=== PATIENT | male | born 1935 | race Two or more races ===

== ENCOUNTER 2021-01-08 01:31 | Inpatient (IN) | payer OTHER ==
[~2021-01-08] VITALS: Ht 167.6 cm; Wt 50.0 kg
[2021-01-08 01:43] LABS: ABG A-A DIFF O2 435.6 mmHg (10-20.0); ABG BASE EXCESS 19.9 mmol/L (-2.0-3.0); ABG CARBOXYHEMOGLOBIN 0.4 % (0.0-1.5); ABG METHEMOGLOBIN 0.4 % (0.0-1.5); ABG OXYGEN CONTENT 14.5 mL/dL (15.0-23.0); ABG OXYHEMOGLOBIN 98.2 % (94.0-100.0); ABG PH 7.392 (7.35-7.450); ABG TOTAL HEMOGLOBIN 10.2 G/dL (12.0-18.0); PO2, ARTERIAL BG 199.7 mmHg (71.0-79.0); SOURCE, BLOOD GAS ARTERIAL
[2021-01-08 01:44] LABS: ABG PCO2 76 mmHg (35-45); O2 DEVICE,BLOOD GAS BIPAP (ROOM AIR); SITE, BLOOD GAS RT RADIAL
[2021-01-08] MEDS ORDERED: IPRATROPIUM BROMIDE 0.5 MG/2.5 ML NEB SOLUTION NEB ONE (01:45)
[2021-01-08] MEDS ORDERED: 0.9% SODIUM CHLORIDE 10 ML SYRINGE IVP PRN ×2 (01:45→06:45)
[2021-01-08] MEDS ORDERED: ALBUTEROL SULFATE 5 MG/ML 20 ML NEB SOLN [BULK] NEB ONE (01:45)
[2021-01-08] MEDS ORDERED: ACETAMINOPHEN 1000 MG/ISO-OSM 100 ML IV ONE (01:45)
[2021-01-08 01:47] LABS: EOSINOPHILS % (AUTO) 13.8 % (1.0-6.0); HEMATOCRIT 28.3 % (41-53); HEMOGLOBIN 8.9 g/dL (13.5-17.5); LYMPHOCYTES # (AUTO) 0.8 K/uL (1.0-4.8); LYMPHOCYTES % (AUTO) 9.4 % (22.0-44.0); MEAN CORPUSCULAR HEMOGLOBIN 33.4 pg (26.0-34.0); MEAN CORPUSCULAR HGB CONC 31.6 G/dL (31.0-37.0); MEAN CORPUSCULAR VOLUME 106 fL (80-100); MONOCYTES # (AUTO) 0.9 K/uL (0.1-1.0); MONOCYTES % (AUTO) 10.2 % (2.0-9.0); NEUTROPHILS # (AUTO) 5.5 K/uL (1.8-7.7); NEUTROPHILS % (AUTO) 65.6 % (40.0-70.0); PLATELET COUNT (AUTO) 183 K/uL (150-450); RED BLOOD CELL COUNT(AUTO) 2.67 MIL/uL (4.50-5.90); RED CELL DISTRIBUTION WIDTH 16.1 % (11.5-14.5)
[2021-01-08] MEDS ORDERED: NIFE30TA98 PO (01:47)
[2021-01-08] MEDS ORDERED: TERA2CAP10 PO (01:47)
[2021-01-08] MEDS ORDERED: FINA-27 PO (01:47)
[2021-01-08] MEDS ORDERED: ATOR40TA28 PO (01:47)
[2021-01-08] MEDS ORDERED: METO50 PO (01:47)
[2021-01-08] MEDS ORDERED: THIA100T80 PO (01:47)
[2021-01-08] MEDS ORDERED: FURO20 PO (01:47)
[2021-01-08 01:51] LABS: CHLORIDE 103 mmol/L (98-107); CREATININE 1.09 mg/dL (0.60-1.30); GLUCOSE,RANDOM 200 mg/dL (70-110); POTASSIUM 4.3 mmol/L (3.5-5.1); SODIUM SERUM 148 mmol/L (136-145); UREA NITROGEN, BLOOD 40 mg/dL (7-18)
[2021-01-08 01:58] LABS: ALANINE AMINOTRANSFERASE 20 U/L (12-78); ALKALINE PHOSPHATASE 71 U/L (46-116); ASPARTATE AMINOTRANSFERASE 16 U/L (15-37); BILIRUBIN,TOTAL 0.7 mg/dL (0.1-1.0); CREATINE KINASE, TOTAL ONLY 19 U/L (39-308); TOTAL PROTEIN, SERUM 6.6 g/dL (6.4-8.2)
[2021-01-08 02:01] LABS: ANION GAP -3 mmol/L (8-16); GLOMERULAR FILTR. RATE CALC > 60 mL/min (>60)
[2021-01-08 02:03] LABS: CARBON DIOXIDE 48 mmol/L (22-29)
[2021-01-08 02:06] LABS: LACTIC ACID 1.2 mmol/L (0.4-2.0)
[2021-01-08 02:08] LABS: B-TYPE NATRIURETIC PEPTIDE 112 pg/mL (0-100)
[2021-01-08 02:09] LABS: D-DIMER 0.64 mg/L FEU (0.00-0.50); INR 1.1 (0.9-1.1); PROTHROMBIN TIME 11.3 SEC (9.4-11.6)
[2021-01-08 02:37] LABS: COVID AG,FIA SOURCE NASOPHARYNGEAL
[2021-01-08] MEDS ORDERED: PRED1 PO (03:20)
[2021-01-08] MEDS ORDERED: AMOX500C2 PO (03:20)
[2021-01-08 03:22] LABS: INFLUENZA TYPE A NEGATIVE FOR TYPE A (NEGATIVE); INFLUENZA TYPE B NEGATIVE FOR TYPE B (NEGATIVE)
[2021-01-08] MEDS ORDERED: AZITHROMYCIN 500 MG/NS 250 ML IV ONE (03:45)
[2021-01-08] MEDS ORDERED: CefTRIAXone 1 GM/DEXTROSE 50 ML IV ONE (03:45)
[2021-01-08 04:28] LABS: ABG A-A DIFF O2 126.2 mmHg (10-20.0); ABG BASE EXCESS 18.7 mmol/L (-2.0-3.0); ABG CARBOXYHEMOGLOBIN 0.5 % (0.0-1.5); ABG METHEMOGLOBIN 0.3 % (0.0-1.5); ABG OXYGEN CONTENT 13.1 mL/dL (15.0-23.0); ABG OXYGEN SATURATION 99.4 % (95.0-98.0); ABG OXYHEMOGLOBIN 98.6 % (94.0-100.0); ABG PCO2 81 mmHg (35-45); ABG PH 7.357 (7.35-7.450); ABG TOTAL HEMOGLOBIN 9.1 G/dL (12.0-18.0); PO2, ARTERIAL BG 212.9 mmHg (71.0-79.0); SITE, BLOOD GAS RT RADIAL; SOURCE, BLOOD GAS ARTERIAL; TEMPERATURE, FAHRENHEIT, BG 98.6 FAHREN (96.0-98.6)
[2021-01-08 04:29] LABS: O2 DEVICE,BLOOD GAS BIPAP (ROOM AIR)
[2021-01-08] MEDS ORDERED: MethylPREDNISolone SOD SUCC 125 MG/2 ML VIAL IVP ONE (05:45)
[2021-01-08] MEDS ORDERED: ACETAMINOPHEN 325 MG TABLET PO PRN (06:45)
[2021-01-08] MEDS ORDERED: ONDANSETRON HCL 4 MG/2 ML VIAL IVP PRN (06:45)
[2021-01-08] MEDS ORDERED: *CLINICAL-CEFTAZIDIME DOSING CLINICAL ONE (07:45)
[2021-01-08] MEDS ORDERED: VANCOMYCIN HCL 1 GM/D5% WATER 200 ML IV ONE (08:00)
[2021-01-08] MEDS: HEPARIN SODIUM,PORCINE 5,000 UNITS/ML VIAL SQ SCH ×3 (08:15→23:49)
[2021-01-08] MEDS: ATORVASTATIN CALCIUM 40 MG TABLET PO SCH (08:41)
[2021-01-08] MEDS: METOPROLOL TARTRATE 50 MG TABLET PO SCH ×2 (08:42→21:00)
[2021-01-08] MEDS: THIAMINE 100 MG TABLET PO SCH (08:42)
[2021-01-08] MEDS ORDERED: FINASTERIDE 5 MG TABLET PO SCH ×2 (09:00→15:30)
[2021-01-08] MEDS ORDERED: FUROSEMIDE 20 MG TABLET PO SCH (09:00)
[2021-01-08] MEDS ORDERED: IPRATROPIUM BROMIDE 0.5 MG/2.5 ML NEB SOLUTION NEB PRN (11:15)
[2021-01-08] MEDS ORDERED: ALBUTEROL SULFATE 2.5 MG/0.5 ML NEB SOLUTION NEB PRN (11:15)
[2021-01-08] MEDS ORDERED: SODIUM CHLORIDE 0.9% 1,000 ML IV ONE (13:30)
[2021-01-08 16:47] VITALS: BP 112/47
[2021-01-08] MEDS: CefTAZidime PENTAHYDRATE 1 GM in DEXTROSE 5%-WATER 50 ML IV SCH (16:48)
[2021-01-08 20:30] VITALS: BP 109/52
[2021-01-08] MEDS ORDERED: TERAZOSIN HCL 2 MG CAPSULE PO SCH ×2 (21:00)
[2021-01-08 23:51] VITALS: BP 112/52
[2021-01-09] MEDS: CefTAZidime PENTAHYDRATE 1 GM in DEXTROSE 5%-WATER 50 ML IV SCH ×2 (04:32→16:19)
[2021-01-09 05:58] VITALS: BP 105/50
[2021-01-09 07:30] VITALS: BP 112/45
[2021-01-09] MEDS: ATORVASTATIN CALCIUM 40 MG TABLET PO SCH (08:00)
[2021-01-09] MEDS: THIAMINE 100 MG TABLET PO SCH (08:00)
[2021-01-09] MEDS: HEPARIN SODIUM,PORCINE 5,000 UNITS/ML VIAL SQ SCH ×2 (08:00→16:20)
[2021-01-09] MEDS: MethylPREDNISolone SOD SUCC 40 MG/ML VIAL IVP SCH ×2 (08:01→16:19)
[2021-01-09] MEDS: METOPROLOL TARTRATE 50 MG TABLET PO SCH (08:04)
[2021-01-09] MEDS ORDERED: MethylPREDNISolone SOD SUCC 40 MG/ML VIAL IVP SCH (09:00)
[2021-01-09 12:00] LABS: CALCIUM, TOTAL 9.8 mg/dL (8.8-10.5); CHLORIDE 109 mmol/L (98-107); CREATININE 0.71 mg/dL (0.60-1.30); GLUCOSE,RANDOM 129 mg/dL (70-110); POTASSIUM 3.9 mmol/L (3.5-5.1); SODIUM SERUM 152 mmol/L (136-145); UREA NITROGEN, BLOOD 38 mg/dL (7-18)
[2021-01-09] MEDS ORDERED: SODIUM CHLORIDE 0.9% 1,000 ML IV SCH (12:00)
[2021-01-09 12:03] VITALS: BP 118/44
[2021-01-09 12:20] LABS: ANION GAP -9 mmol/L (8-16); CARBON DIOXIDE 52 mmol/L (22-29); GLOMERULAR FILTR. RATE CALC > 60 mL/min (>60); PHOSPHORUS 2.8 mg/dL (2.5-4.9)
[2021-01-09] MEDS ORDERED: DEXTROSE 5%-WATER 1,000 ML IV SCH (13:45)
[2021-01-09] MEDS ORDERED: CEFT1VIA IV (14:46)
[2021-01-09] MEDS ORDERED: SM40I IVP (14:50)
[2021-01-09] MEDS ORDERED: NS1000 IV (14:54)
== END 2021-01-09 16:30 | disposition short-term general hospital (02) | DRG 189 ==
LOC: EMS 01:39 → 5S 14:22 → EMS 15:27
PROVIDERS: ADMIT Internal Medicine; ATTEND Internal Medicine
PROC: 5A09357 Assistance with Respiratory Ventilation, Less than 24 Consecutive Hours, Continuous Positive Airway Pressure (ICD-10-PCS; principal; 2021-01-08)
DX: J96.21 Acute and chronic respiratory failure with hypoxia (principal); E43 Unspecified severe protein-calorie malnutrition; J18.9 Pneumonia, unspecified organism; E87.1 Hypo-osmolality and hyponatremia; E87.0 Hyperosmolality and hypernatremia; E87.4 Mixed disorder of acid-base balance; J44.0 Chronic obstructive pulmonary disease with (acute) lower respiratory infection; Z66 Do not resuscitate; J96.22 Acute and chronic respiratory failure with hypercapnia; Z20.822 Contact with and (suspected) exposure to COVID-19; D64.9 Anemia, unspecified; E78.00 Pure hypercholesterolemia, unspecified; E78.5 Hyperlipidemia, unspecified; E83.51 Hypocalcemia; E83.52 Hypercalcemia; I11.0 Hypertensive heart disease with heart failure; I50.9 Heart failure, unspecified; N40.0 Benign prostatic hyperplasia without lower urinary tract symptoms; Z79.899 Other long term (current) drug therapy; Z87.891 Personal history of nicotine dependence; Z99.81 Dependence on supplemental oxygen
CPT/HCPCS: 36600; 71045; 80048; 80053; 82550; 82805; 83605; 83735; 83880; 84100; 84145; 84484; 85025; 85379; 85610; 85730; 87040; 87804; 93005; 94060; 94644; 94660; 99291; J0131; J0456; J0696; J0713; J1644; J2920; J2930; J3370; J7060; 36415-L1; 36415-TC; J7611; U0003